=== PATIENT | female | born 1995 | race Asian ===

== ENCOUNTER → 2022-02-25 12:57 | Outpatient (CLI) | payer OTHER, SELFPAY ==
--- NOTE | 2022-02-25 13:01 | DI.US.S_ITS ---
PROCEDURE: US OB <= 14 WEEKS FETUS INDICATIONS: DATING OUTSIDE/PRIOR DATING DATA: Last menstrual period (LMP): 09/24/2021 LMP-based estimated date of delivery (TESSA): 07/01/2022 First dating scan (date and location): 02/25/2022 Estimated date of delivery (TESSA) from first dating scan: 09/12/2022 TECHNIQUE: Real-time scanning was performed of the fetus and maternal pelvic organs, with image documentation. Endovaginal scanning was also performed to better visualize the fetus and maternal ovaries. COMPARISON: None. FINDINGS: Embryo: Intrauterine gestational sac is seen with yolk sac and pole. Garvin-rump length is 4.8 cm, consistent with an estimated gestational age of 11 weeks 4 days. A heterogeneous perigestational sac hemorrhage inferior and to the left of the gestational sac measures 4.6 x 4.0 x 2.7 cm, covering less than 50 % of the circumference of the gestational sac. Heart rate: 189 beats per minute Maternal organs: A right corpus luteum cyst is seen. Left ovary appears normal. IMPRESSION: 1. Single live intrauterine with estimated gestational age of 11 weeks 4 days, giving an ultrasound TESSA of 09/12/2022. 2. Perigestational sac hemorrhage is seen measuring 4.6 x 4.0 x 2.7 cm. We strive to produce accurate, complete, and clear reports of imaging services. To assist us in improving patient care, this report was composed using standard report templates and voice recognition software. Therefore, it may contain abnormal punctuation, insertions and/or omissions. Occasional wrong-word or sound-alike substitutions may occur. Though we review the report and make efforts to correct it, we do recommend that the report be read carefully in proper context to recognize any text inaccuracies. Dictated by: Eric Medellin M.D. on 02/25/2022 at 19:27 Approved by: Eric Medellin M.D. on 02/25/2022 at 19:32
== END ==
PROVIDERS: PCP Physician Assistant; Referring Provider Family Medicine; Visit Provider Family Medicine
DX: O46.91 Antepartum hemorrhage, unspecified, first trimester (principal); Z3A.11 11 weeks gestation of pregnancy
CPT/HCPCS: 76801; 76817

== ENCOUNTER → 2022-05-05 06:37 | Outpatient (CLI) | payer OTHER, SELFPAY ==
--- NOTE | 2022-05-05 06:39 | DI.US.S_ITS ---
PROCEDURE: US OB >= 14 WEEKS FETUS INDICATIONS: Anatomy Scan OUTSIDE/PRIOR DATING DATA: Last menstrual period (LMP): 09/24/2021. LMP-based estimated date of delivery (TESSA): 07/01/2022. First dating scan (date and location): 02/25/2022; [facility]. Estimated date of delivery (TESSA) from first dating scan: 09/12/2022. The calculations are made using the working TESSA of 09/12/2022. TECHNIQUE: Real-time scanning was performed of the fetus, with image documentation and biometric measurements. COMPARISON: [facility], OB <= 14 WEEKS FETUS, 02/25/2022, 13:11. FINDINGS: General: A single living intrauterine gestation is present. Presentation: Vertex. Placenta: Placental position is anterior, without previa. Amniotic fluid index: 14.1 cm, normal range is 5-24 cm. Single deepest vertical pocket is 7.4 cm. heart rate: 163 beats per minute. Maternal cervical canal: 3 point cm long. Normal lower limit is 2.5 cm. biometrics: Biparietal diameter: 22 weeks 0 day Head circumference: 21 weeks 4 days Abdominal circumference: 22 weeks 0 day Femur length: 21 weeks 1 day Clinically estimated gestational age: 21 weeks 3 days Composite gestational age from present scan: 21 weeks 5 days Estimated weight and percentile: 435 g; 53% Anatomic survey: Neuro: Ventricles are non-dilated at less than 10 mm. Cisterna magna is normal at 3-11 mm. Cerebellum is normal in size and morphology. Nuchal skin fold: Normal at less than 6 mm between 14-21 weeks gestational age. Face: Nose and lips, facial profile are normal. Spine: No evidence for spina bifida. Heart: 4-chambered heart is present, with normal ventricular outflow tracts. Diaphragm: Diaphragm is intact. Stomach: Left-sided stomach is present. Kidneys: No hydronephrosis. Normal is less than 5 mm in 2nd trimester, less than 7 mm in 3rd trimester. Cord: 3-vessel cord has orthotopic insertion. Bladder: Normal in size. Extremities: All 4 extremities identified. IMPRESSION: 1. A single living intrauterine gestation with appropriate interval growth. 2. Normal anatomic survey. We strive to produce accurate, complete, and clear reports of imaging services. To assist us in improving patient care, this report was composed using standard report templates and voice recognition software. Therefore, it may contain abnormal punctuation, insertions and/or omissions. Occasional wrong-word or sound-alike substitutions may occur. Though we review the report and make efforts to correct it, we do recommend that the report be read carefully in proper context to recognize any text inaccuracies. Dictated by: Tip Bailey M.D. on 05/05/2022 at 10:43 Approved by: Tip Bailey M.D. on 05/05/2022 at 10:51
== END ==
PROVIDERS: PCP Physician Assistant; Referring Provider Family Medicine; Visit Provider Family Medicine
DX: Z36.89 Encounter for other specified antenatal screening (principal); O98.812 Other maternal infectious and parasitic diseases complicating pregnancy, second trimester; Z3A.21 21 weeks gestation of pregnancy
CPT/HCPCS: 76811; 81003; 81015; 87086; 87491; 87591

== ENCOUNTER → 2022-05-05 09:11 | Outpatient (CLI) | payer OTHER, SELFPAY ==
[2022-05-05 14:08] LABS: Appearance Urine UA CLEAR; Bilirubin Urine UA NEGATIVE (NEGATIVE); Color Urine UA YELLOW; Glucose Urine UA 1+ g/dL (Negative); Ketones Urine UA NEGATIVE (NEGATIVE); Leukocyte Esterase Urine UA TRACE (NEGATIVE); Nitrite Urine UA NEGATIVE (Negative); Occult Blood Urine UA TRACE-INTACT (Negative); Protein Urine UA NEGATIVE (Negative); Urobilinogen Urine UA 0.2 E.U./dL (0.2)
[2022-05-05 14:09] LABS: pH Urine UA 6.5 (4.5-8.0)
[2022-05-05 14:15] LABS: RBC Urine None Seen (0-5/HPF); Squamous Epithelial Cell Urine 1-5 /HPF (0-5/HPF); WBC Urine 1-5/HPF (0-5/HPF)
[2022-05-05 14:16] LABS: Amorphous Sediment Urine 1+; Bacteria Urine Many (>30)
[2022-05-05 14:17] LABS: Culture Indicated Urine Specimen Cultured
[2022-05-05 15:02] LABS: Urine N gonorrhoeae NOT DETECTED
[2022-05-05 15:03] LABS: Urine Chlamydia DETECTED
== END ==
PROVIDERS: PCP Physician Assistant; Visit Provider Family Medicine
DX: Z34.00 Encounter for supervision of normal first pregnancy, unspecified trimester (principal); A74.9 Chlamydial infection, unspecified; N92.6 Irregular menstruation, unspecified
CPT/HCPCS: 81003; 81015; 87086; 87491; 87591

== ENCOUNTER → 2022-06-09 13:34 | Outpatient (CLI) | payer OTHER, SELFPAY ==
[2022-06-09 15:09] LABS: Urine N gonorrhoeae NOT DETECTED
[2022-06-09 15:10] LABS: Urine Chlamydia NOT DETECTED
== END ==
PROVIDERS: PCP Physician Assistant; Visit Provider Family Medicine
DX: A74.9 Chlamydial infection, unspecified (principal)
CPT/HCPCS: 87491; 87591

== ENCOUNTER → 2022-06-26 12:48 | Outpatient (CLI) | payer OTHER, SELFPAY ==
[2022-06-26 14:59] LABS: Add Manual Diff / Slide Review NO; Basophils Absolute Auto 0 /uL (0-100); Basophils Percent Auto 0.5 % (0-2); Eosinophils Absolute Auto 0 /uL (0-450); Eosinophils Percent Auto 0.6 % (2-4); Hematocrit 32.7 % (36-46); Hemoglobin 11.2 g/dL (12.0-16.0); Lymphocytes Absolute Auto 1600 /uL (1100-4500); Lymphocytes Percent Auto 21.4 % (25-40); Mean Corpuscular HGB Conc 34.4 % (30-36); Mean Corpuscular Hemoglobin 29.3 PG (26-34); Mean Corpuscular Volume 85.2 fL (80-100); Monocytes Absolute Auto 400 /uL (0-900); Monocytes Percent Auto 5.8 % (3-14); Neutrophils Absolute Auto 5300 /uL (1500-7000); Neutrophils Percent Auto 71.7 % (50-75); Platelet Count 236 X10^3/uL (150-400); Red Blood Cell Count 3.83 X10^6/uL (4.0-5.2); Red Cell Distribution Width 17.4 % (11.6-14.8); White Blood Cell Count 7.3 X10^3/uL (4.5-11.0)
[2022-06-26 16:31] LABS: GTT (PREG) 1 Hour PP 50gm Dose 144 mg/dL (76-139)
[2022-06-27 08:39] LABS: RPR Screen Non Reactive (Non Reactive)
[2022-06-27 21:01] LABS: HIV 1 & 2 Ab/Ag 4th Gen Combo NEGATIVE (NEGATIVE); Hep C Virus Ab w/Reflex Quant NEGATIVE s/c (NEGATIVE); Hepatitis B Surface Antigen NEGATIVE s/c (NEGATIVE)
[2022-06-28 15:36] LABS: Varicella IgG Antibody 372 index (Immune >165)
== END ==
PROVIDERS: PCP Family Medicine; Referring Provider Family Medicine; Visit Provider Family Medicine
DX: Z34.00 Encounter for supervision of normal first pregnancy, unspecified trimester (principal); N92.6 Irregular menstruation, unspecified; Z13.1 Encounter for screening for diabetes mellitus
CPT/HCPCS: 80055; 82950; 86787; 86803; 86850; 86900; 86901; 87389

== ENCOUNTER → 2022-07-06 07:59 | Outpatient (CLI) | payer OTHER, SELFPAY ==
[2022-07-06 09:22] LABS: Glucose Fasting Gestational 84 mg/dL (76-95)
[2022-07-06 10:27] LABS: Glucose 1 Hour Gest 160 mg/dL (76-180)
[2022-07-06 11:14] LABS: Glucose 2 Hour Gest 148 mg/dL (76-155)
[2022-07-06 11:21] LABS: Glucose Tol Interp,Gestational INTERPRETATION
[2022-07-06 11:51] LABS: Glucose 3 Hour Gest 119 mg/dL (76-140)
== END ==
PROVIDERS: PCP Family Medicine; Referring Provider Family Medicine; Visit Provider Family Medicine
DX: R73.09 Other abnormal glucose (principal)
CPT/HCPCS: 36415; 82951; 82952

== ENCOUNTER 2022-08-11 21:20 | Inpatient (IN) | payer OTHER, SELFPAY ==
[2022-08-11] MEDS: AMPICILLIN 2,000 MG in SODIUM CHLORIDE 0.9% 100 ML 200 MG IV (22:56)
[2022-08-11] MEDS: BETAMETHASONE 30 MG/5 ML MDV 12 MG IM (22:59)
[2022-08-11] MEDS: LACTATED RINGERS 1,000 ML 100 ML IV (23:00)
[2022-08-11 23:12] VITALS: BP 134/91
[2022-08-11 23:17] LABS: Add Manual Diff / Slide Review NO; Basophils Absolute Auto 0 /uL (0-100); Basophils Percent Auto 0.4 % (0-2); Eosinophils Absolute Auto 100 /uL (0-450); Eosinophils Percent Auto 0.6 % (2-4); Hematocrit 35.4 % (36-46); Hemoglobin 12.3 g/dL (12.0-16.0); Lymphocytes Absolute Auto 2100 /uL (1100-4500); Lymphocytes Percent Auto 22.8 % (25-40); Mean Corpuscular HGB Conc 34.8 % (30-36); Mean Corpuscular Hemoglobin 29.5 PG (26-34); Mean Corpuscular Volume 84.6 fL (80-100); Monocytes Absolute Auto 700 /uL (0-900); Neutrophils Absolute Auto 6200 /uL (1500-7000); Neutrophils Percent Auto 68.2 % (50-75); Platelet Count 229 X10^3/uL (150-400); Red Blood Cell Count 4.18 X10^6/uL (4.0-5.2); Red Cell Distribution Width 18.2 % (11.6-14.8); White Blood Cell Count 9.1 X10^3/uL (4.5-11.0)
[2022-08-11 23:33] LABS: Blood Urea Nitrogen 6 mg/dL (7-17); Calcium 8.7 mg/dL (8.4-10.2); Carbon Dioxide 21 mmol/L (22-32); Chloride 106 mmol/L (98-107); Estimated Glomerular Filt Rate > 60 mL/min (>60); Glucose 103 mg/dL (70-100); HEMOLYSIS < 15 (0-50); Sodium 137 mmol/L (137-145)
[2022-08-11 23:39] LABS: Potassium 2.7 mmol/L (3.4-5.1)
[2022-08-12 00:12] LABS: Alanine Aminotransferase 19 IU/L (<35); Albumin 3.9 g/dL (3.5-5.0); Albumin Globulin Ratio 1.1 (1.0-2.8); Alkaline Phosphatase 104 U/L (38-126); Aspartate Aminotransferase 23 IU/L (14-36); Bilirubin Total 0.4 mg/dL (0.2-1.3); Bilirubin Unconjugated 0.2 mg/dL (0.0-1.1); Globulin 3.5 g/dL (1.7-4.1); HEMOLYSIS < 15 (0-50); Total Protein 7.4 g/dL (6.3-8.2)
[2022-08-12 00:22] LABS: Strep Grp B PCR POS for Grp B Strep
[2022-08-12 00:35] LABS: Creatinine Urine Random 46.5 mg/dL; Protein (Total) Urine Random 27 mg/dL (0-12); Protein Creatinine Ratio Urine 0.58 GRAM/24H
[2022-08-12] MEDS: fentaNYL 100 MCG/2 ML INJ 50 MCG IV (01:32)
[2022-08-12] MEDS: AMPICILLIN 1,000 MG in SODIUM CHLORIDE 0.9% 100 ML 200 MG IV (02:47)
--- NOTE | 2022-08-12 03:43 | P.HPOB_ITS ---
OB HPI Date/Time Date of admission: 08/11/22 Date Patient Seen: 08/12/22 Time Patient Seen: 03:43 History of Present Condition Chief complaint: observation of labor TESSA Calculator Estimated Delivery Date Method Current WG Current Estimate 09/12/22 Manual 35w 4d Final TESSA Other Estimates 07/01/22 LMP (Certain) 46w 0d 09/12/22 Ultrasound #1 35w 4d Estimated Gestational Age (weeks): 35w4d : 1 Para: 0 Narrative: 27yo at 35w4d here with leaking fluid. Pt reports feeling a large gush of fluid around 8:55pm last night. She has continued to leak since then. No vaginal bleeding or contractions. She continues to feel her baby move regularly. Since admission to the hospital, she started to feel regular, painful contractions. The pts was complicated by positive Chlamydia testing in the 2nd trimester, with negative BRAYAN. care: good care, initiated at week # (12) and pounds weight gain (12) Dating criteria OB: based on 1st trimester US only Ultrasounds: normal 1st trimester US and normal mid trimester US Obstetrical complications: none Medical complications OB: none Preadmission Labs Last OB Lab Results: Blood Type O Positive 08/11/22 22:45 Antibody Screen Negative 08/11/22 22:45 Hematocrit 35.4 % (36-46) L 08/11/22 22:45 Hemoglobin 12.3 g/dL (12.0-16.0) 08/11/22 22:45 Hepatitis B Surface Antigen Negative s/c (NEGATIVE) 06/26/22 14 :16 Hepatitis C Antibody Negative s/c (NEGATIVE) 06/26/22 14:16 Rubella Antibody 141.0 IU/mL (>15) 06/26/22 14:16 Varicella-Zoster IgG Antibody 372 index (Immune >165) 06/26/22 14:16 Glucose 1 Hour 144 mg/dL (76-139) H 06/26/22 14:16 Group B Streptococcus (PCR) Pos for grp b strep H 08/11/22 22:5 0 -: Chlamydia screen: positive, Gonorrhea screen: negative and Urine: negative External Labs -: Urine: negative Evaluation Evaluation Baseline heart rate: 120 Variability: Moderate (11-25) monitor accelerations: Present Monitor Decelerations: Absent Contraction Frequency (minutes): 3 Uterine Contraction Intensity: Strong/Firm Status: Category l Dilation (cm): 10 Effacement (%): 100 station: -1 [facility] Medical History Healthy adult Irregular menses Surgical History No pertinent past surgical history Family History Grandmother Hypertension Mother Diabetes mellitus Brother ALL (acute lymphoblastic leukemia) Father Family estrangement Social History marital status: household members: spouse and friend(s) lives independently: Yes housing: house pets and animals: No education level: college (Can's degree) occupational status: previously employed current occupational exposures/hazards: No special rupert needs: No travel history: recent (domestic only) seatbelt use: always water heater temp set < 120 deg: Yes working smoke detector in home: Yes fire extinguisher in home: Yes carbon monox detector in home: Yes firearms in home: No do you feel safe at home: Yes Smoking Status: Never smoker second hand exposure: Yes (Hub[place] and roommates smoke outside, not in car) alcohol intake: former (~2 glasses wine/month prior topregnancy) substance use type: does not use during the past year weight has: other (fluctuated (lost 20lb, gained it back)) well-balanced diet: rarely or never daily servings fruits/ve-1 caffeine: No Type(s) of exercise: none Meds Home Medications and Allergies Home Medications Medication Instructions Recorded Confirmed Type prenat.vits,catarina,[id number] 1 tab PO DAILY 02/16/22 08/11/22 History Allergies Allergy/AdvReac Type Severity Reaction Status Date / Time No Known Allergies Allergy Verified 08/11/22 21:54 OB Exam Narrative Exam Narrative: Gen: NAD, sitting comfortably in bed, appears well CV: RRR, no murmurs Resp: clear to auscultation bilaterally Abd: soft, nontender, gravid Ext: no edema Objective Labs 08/11/22 22:45 08/11/22 22:45 Labs: Laboratory Results - last 24 hr 08/11/22 08/11/22 08/11/22 22:37 22:45 22:45 WBC 9.1 RBC 4.18 Hgb 12.3 Hct 35.4 L MCV 84.6 MCH 29.5 MCHC 34.8 RDW 18.2 H Plt Count 229 Neut % (Auto) 68.2 Lymph % (Auto) 22.[address] [place] % (Auto) 8.0 Eos % (Auto) 0.6 L Baso % (Auto) 0.4 Neut # (Auto) 6200 Lymph # (Auto) 2100 [facility] # (Auto) 700 Eos # (Auto) 100 Baso # (Auto) 0 Sodium 137 Potassium 2.7 L* Chloride 106 Carbon Dioxide 21 L BUN 6 L Creatinine 0.46 L Estimated GFR > 60 BUN/Creatinine Ratio 13.0 Glucose 103 H Calcium 8.7 Total Bilirubin Conjugated Bilirubin Unconjugated Bilirubin AST ALT Alkaline Phosphatase Total Protein Albumin Globulin Albumin/Globulin Ratio U Random Total Protein 27 H Urine Creatinine 46.5 Protein/Creatinin Ratio 0.58 Group B Strep (PCR) Blood Type Antibody Screen 08/11/22 08/11/22 08/11/22 22:45 22:45 22:50 WBC RBC Hgb Hct MCV MCH MCHC RDW Plt Count Neut % (Auto) Lymph % (Auto) [facility] % (Auto) Eos % (Auto) Baso % (Auto) Neut # (Auto) Lymph # (Auto) [facility] # (Auto) Eos # (Auto) Baso # (Auto) Sodium Potassium Chloride Carbon Dioxide BUN Creatinine Estimated GFR BUN/Creatinine Ratio Glucose Calcium Total Bilirubin 0.4 Conjugated Bilirubin 0.0 Unconjugated Bilirubin 0.2 AST 23 ALT 19 Alkaline Phosphatase 104 Total Protein 7.4 Albumin 3.9 Globulin 3.5 Albumin/Globulin Ratio 1.1 U Random Total Protein Urine Creatinine Protein/Creatinin Ratio Group B Strep (PCR) Pos for grp b strep H Blood Type O Positive Antibody Screen Negative Assessment and Plan Assessment and Plan Assessment and Plan narrative: 27yo at 35w4d here with PPROM initially, now in active labor and fully dilated. GBS prophylaxis started at admission due to prematurity and unknown GBS status, now shown to be GBS positive. Has received adequate GBS prophylaxis. Received one dose of Betamethasone at admission as well for luis aturity. Pt did test positive for chlamydia earlier in with negative BRAYAN. Rh positive. - Expectant management, anticipate - Start pushing now. Pt desires natural methods for pain control and is coping well thus far. - FHT reassuring - Continue GBS prophylaxis with Ampicillin - Ensure infant receives Erythromycin eye ointment after delivery
[2022-08-12] MEDS: LIDOCAINE 1% 20 ML ×2 (04:22→05:05)
--- NOTE | 2022-08-12 04:51 | PM.OBPRVD ---
Events: Labor < 37 wks Labor & Delivery Delivery date: 08/12/22 Intrapartal Events: None Cervical ripening method: none Induction method: none Delivery monitor: external FHT and external uterine Route of delivery: L&D Laceration Description: Perineal - 2nd Degree Delivery repair: vicryl Quantitative Blood Loss: 1,345 Anesthesia Type: None Complications: hemorrhage Narrative: PROCEDURE: at 35w4d presented with PPROM and was admitted to Labor and Delivery. She converted into active labor spontaneously. The patient progressed through the 1st stage over 6.5 hours. Pain was controlled with natural methods. She received adequate GBS prophylaxis with Ampicillin. The patient progressed through the 2nd stage over 51 minutes and delivered a viable male with APGARs 8/9 at 4:10 via without complications. Nuchal cord x1 was reduced at the perineum. The cord was cut and clamped after it stopped pulsating. The placenta delivered with gentle cord traction, and appeared complete. The perineum and vagina were inspected with 2nd degree laceration repaired with 2-O Chromic in the usual fashion. The pt continued to have significant bleeding, and fundus was initially difficult to find on exam. It was then palpated, and found to be firm with fundal massage. The pt was cleaned, and then noted to have return of brisk bleeding. Her bladder was distended, and when attempting catheter for drainage bleeding began from the periurethral area. Periurethral laceration was then noted, and repaired with 3-O Chromic. The pts bleeding was then appropriate. Needle and sponge counts were correct.? The vagina was inspected and no items were left in situ. Nivia was doing well with Lorne Wakefield, her and her at bedside. PREPROCEDURE DIAGNOSIS: Intrauterine at 35w4d PPROM Pre-eclampsia without severe features GBS positive RH positive POSTPROCEDURE DIAGNOSIS: Intrauterine at 35w4d, delivered Same as preprocedure hemorrhage Baby 1: gender: Male Presentation: vertex Position: Left Occiput Anterior Placenta delivery description: Spontaneous Cord Vessel Description: 3 Vessels and Nuchal Cord score (1 min): 8 score (5 min): 9 weight: 5 lb 14.711 oz Plan for aftercare: Routine care
[2022-08-12] MEDS: LACTATED RINGERS 1,000 ML 100 ML IV (05:45)
[2022-08-12] MEDS: DERMOPLAST SPRAY 20% 60 ML 1 SPRAY TOP (06:26)
[2022-08-12] MEDS: IBUPROFEN 600 MG TABLET PO ×3 (06:27→21:24)
[2022-08-12] MEDS: ACETAMINOPHEN 325 MG TABLET 650 MG PO ×3 (06:27→21:24)
[2022-08-12] MEDS: miSOPROStoL 200 MCG TABLET 1000 MCG PR (07:32)
[2022-08-12 09:06] LABS: Add Manual Diff / Slide Review NO; Basophils Absolute Auto 0 /uL (0-100); Basophils Percent Auto 0.1 % (0-2); Eosinophils Absolute Auto 0 /uL (0-450); Hematocrit 27.3 % (36-46); Hemoglobin 9.5 g/dL (12.0-16.0); Lymphocytes Absolute Auto 1500 /uL (1100-4500); Lymphocytes Percent Auto 8.4 % (25-40); Mean Corpuscular HGB Conc 34.8 % (30-36); Mean Corpuscular Hemoglobin 29.5 PG (26-34); Mean Corpuscular Volume 84.9 fL (80-100); Monocytes Absolute Auto 300 /uL (0-900); Neutrophils Absolute Auto 15900 /uL (1500-7000); Neutrophils Percent Auto 89.5 % (50-75); Platelet Count 196 X10^3/uL (150-400); Red Blood Cell Count 3.21 X10^6/uL (4.0-5.2); Red Cell Distribution Width 17.7 % (11.6-14.8); White Blood Cell Count 17.7 X10^3/uL (4.5-11.0)
[2022-08-12] MEDS: LANOLIN OINT 7 GM 1 APPLIC TOP (10:01)
[2022-08-12] MEDS: FERROUS SULFATE 325 MG TABLET PO (10:03)
[2022-08-12] MEDS: DOCUSATE 100 MG CAPSULE PO (10:04)
[2022-08-12] MEDS: PRENATAL VIT,CALC/IRON/FOLIC 1 TABLET 1 TAB PO (10:04)
[2022-08-12] MEDS: POTASSIUM CHLORIDE 20 MEQ TAB 40 MEQ PO ×2 (13:55→20:05)
[2022-08-12 14:11] VITALS: BP 113/77; PULSE 87; RESP 16; TEMP 36.3
[2022-08-13] MEDS: ACETAMINOPHEN 325 MG TABLET 650 MG PO ×4 (03:30→21:05)
[2022-08-13] MEDS: IBUPROFEN 600 MG TABLET PO ×4 (03:31→21:05)
--- NOTE | 2022-08-13 04:18 | PC.NURSE ---
Late note entry Patient received two 500ml bags of Pitocin (30 units each) mixed with NS. Stickers with barcode for Pitocin would not scan and manually entering the medication did not work either.
[2022-08-13 06:37] LABS: Add Manual Diff / Slide Review NO; Basophils Absolute Auto 0 /uL (0-100); Basophils Percent Auto 0.2 % (0-2); Eosinophils Absolute Auto 0 /uL (0-450); Hematocrit 22.8 % (36-46); Hemoglobin 7.9 g/dL (12.0-16.0); Lymphocytes Absolute Auto 2600 /uL (1100-4500); Mean Corpuscular HGB Conc 34.8 % (30-36); Mean Corpuscular Hemoglobin 29.6 PG (26-34); Mean Corpuscular Volume 85.1 fL (80-100); Monocytes Absolute Auto 1000 /uL (0-900); Monocytes Percent Auto 6.3 % (3-14); Neutrophils Absolute Auto 11800 /uL (1500-7000); Neutrophils Percent Auto 76.5 % (50-75); Platelet Count 187 X10^3/uL (150-400); Red Blood Cell Count 2.67 X10^6/uL (4.0-5.2); White Blood Cell Count 15.5 X10^3/uL (4.5-11.0)
[2022-08-13 06:42] LABS: Alanine Aminotransferase 19 IU/L (<35); Albumin 3.2 g/dL (3.5-5.0); Albumin Globulin Ratio 1.1 (1.0-2.8); Alkaline Phosphatase 70 U/L (38-126); Aspartate Aminotransferase 25 IU/L (14-36); BUN Creatinine Ratio 15.1 (6-22); Bilirubin Total 0.3 mg/dL (0.2-1.3); Blood Urea Nitrogen 8 mg/dL (7-17); Carbon Dioxide 21 mmol/L (22-32); Chloride 106 mmol/L (98-107); Estimated Glomerular Filt Rate > 60 mL/min (>60); Globulin 2.8 g/dL (1.7-4.1); Glucose 92 mg/dL (70-100); HEMOLYSIS < 15 (0-50); Potassium 3.2 mmol/L (3.4-5.1); Sodium 137 mmol/L (137-145)
[2022-08-13] MEDS: FERROUS SULFATE 325 MG TABLET PO (09:11)
[2022-08-13] MEDS: DOCUSATE 100 MG CAPSULE PO (09:11)
[2022-08-13] MEDS: PRENATAL VIT,CALC/IRON/FOLIC 1 TABLET 1 TAB PO (09:11)
[2022-08-13] MEDS: POTASSIUM CHLORIDE 20 MEQ TAB 40 MEQ PO ×2 (10:10→15:14)
--- NOTE | 2022-08-13 21:25 | P.PNOB_ITS ---
Subjective - OB Subjective Patient comments: no complaints and pain well controlled Narrative: Patient reports that she is doing well. Her lochia is decreasing appropriately. She has voided successfully. She is pumping to try and produce colostrum, but still has not been able to show any yet. Exam Narrative Exam Narrative: Gen: NAD, sitting comfortably in bed, appears well CV: RRR, no murmurs Resp: clear to auscultation bilaterally Abd: soft, appropriately tender, fundus firm and below the umbilicus, nondistended Ext: no edema Objective Labs 08/13/22 06:15 08/13/22 06:15 Labs: Laboratory Results - last 24 hr 08/13/22 08/13/22 06:15 06:15 WBC 15.5 H RBC 2.67 L Hgb 7.9 L Hct 22.8 L MCV 85.1 MCH 29.6 MCHC 34.8 RDW 18.0 H Plt Count 187 Neut % (Auto) 76.5 H Lymph % (Auto) 17.0 L [place] % (Auto) 6.3 Eos % (Auto) 0.0 L Baso % (Auto) 0.2 Neut # (Auto) 75879 H Lymph # (Auto) 2600 [place] # (Auto) 1000 H Eos # (Auto) 0 Baso # (Auto) 0 Sodium 137 Potassium 3.2 L Chloride 106 Carbon Dioxide 21 L BUN 8 Creatinine 0.53 Estimated GFR > 60 BUN/Creatinine Ratio 15.1 Glucose 92 Calcium 8.0 L Total Bilirubin 0.3 AST 25 ALT 19 Alkaline Phosphatase 70 Total Protein 6.0 L Albumin 3.2 L Globulin 2.8 Albumin/Globulin Ratio 1.1 Assessment & Plan Plan Comments: Pt is a 27yo PPD#1 s/p with hemorrhage. Pre-eclampsia diagnosed prior to delivery, however BP has been normal range since delivery. Pt doing well. - Normal care - support with consulted. Formula supplementing, but mother pumping with every feed to promote colostrum production. - Iron supplement Time Spent With Patient Time: Total time spent is greater than 50% in coordination of care (as documented) at patient's floor/unit and/or counseling patient: Time with patient: 15-24 minutes
[2022-08-14] MEDS: IBUPROFEN 600 MG TABLET PO ×2 (02:58→09:06)
[2022-08-14] MEDS: ACETAMINOPHEN 325 MG TABLET 650 MG PO ×2 (02:58→09:06)
[2022-08-14] MEDS: FERROUS SULFATE 325 MG TABLET PO (09:05)
[2022-08-14] MEDS: DOCUSATE 100 MG CAPSULE PO (09:06)
[2022-08-14] MEDS: PRENATAL VIT,CALC/IRON/FOLIC 1 TABLET 1 TAB PO (09:06)
--- NOTE | 2022-08-14 15:01 | P.DS_ITS ---
Discharge Providers Provider Date of admission: 08/11/22 21:20 Discharge Date: 08/14/22 Primary care physician: Yasmin Raymond MD Consults: 08/11/22 21:56 Consult to Anesthesiology Routine Comment: Consulting Provider: Tyrell Lowry Reason for consultation: Epidural 08/13/22 04:55 Consult to Body Shop Mechanic Routine Comment: Discharge provider: Yasmin Raymond MD Summary Hospital Course Date Patient Seen: 08/14/22 Diagnoses: 35w4d gestation GBS positive Rh positive Pre-eclampsia without severe features hemorrhage Acute blood loss anemia Hospital Course: The pt presented with PPROM. She was diagnosed with pre-eclampsia at admission, however her BPs remained in normal range after delivery and she never required MgSO4. She progressed into active labor spontaneously. She had an of a viable baby boy without complications. She had received adequate GBS prophylaxis. 2nd degree perineal and periurethral lacerations were repaired. The pt did have significant bleeding due to difficulty finding her fundus initially, and then from the periurethral laceration. She was started on an iron supplement after delivery for anemia. , there were no additional complications. At the time of discharge she was voiding, ambulating, and passing flatus without difficulty. Her lochia was decreasing appropriately. She was with good latch, but supplementing as well due to minimal colostrum production. Her pain was well controlled. She will f/u in 6 weeks for check. Peripartum Data Infant Delivery Method: Natural Vaginal Laceration Description: Periurethral - 1st Degree and Perineal - 2nd Degree Episiotomy description: None Procedures: Spontaneous vaginal delivery complications: other ( hemorrhage) 1: Gender: Male Disposition of : home Discharge Diagnosis (1) Preeclampsia: Status: Acute (2) hemorrhage: Status: Acute (3) Acute blood loss anemia: Status: Acute (4) 35 weeks gestation of : Status: Acute Status at Discharge Cognitive/behavioral status at discharge: oriented Functional status at discharge: independent ambulation Overall status at discharge: patient is progressing back to baseline Time Spent with Patient Time attestation: Total time spent providing and/or coordinating discharge services: Objective Labs 08/13/22 06:15 08/13/22 06:15 Exam Narrative Exam Narrative: Gen: NAD, sitting comfortably in bed, appears well CV: RRR, no murmurs Resp: clear to auscultation bilaterally Abd: soft, appropriately tender, fundus firm and below the umbilicus, nondistended Ext: no edema Discharge Plan Discharge Plan Patient Disposition: Home Discharge orders & Medications Prescriptions: New acetaminophen 325 mg Tablet 650 mg PO Q6HR PRN (Reason: Pain, Mild (1-3)) Qty: 30 0RF ferrous sulfate 325 mg (65 mg iron) Tablet 325 mg PO DAILY Qty: 30 0RF docusate sodium 100 mg Capsule 100 mg PO DAILY Qty: 30 0RF ibuprofen 600 mg Tablet 600 mg PO Q6HR PRN (Reason: Pain, Mild (1-3)) Qty: 30 0RF Continued prenat.vits,catarina,[id number] Tablet 1 tab PO DAILY Follow up/Referrals: Yasmin Raymond MD [Primary Care Provider] - 6 Weeks (Please follow up with Dr. Raymond on Wednesday, September 23 @ 0900AM for your post- check-up. Please call the clinic with any questions. ) Diet/Activity/Treatments Diet: Diet as Tolerated and Regular Skin/Wound/Dressing Care Report to your healthcare provider any signs of infection, such as:: chills, fever and increased pain Visit Report/Discharge Packet Instructions: DI for Labor and Delivery, Vaginal Stand Alone Forms: Discharge: Care, Patient Portal/API, Stroke Signs & Symptoms Discharge Data Primary Care Provider: Yasmin Raymond Discharges patient from system. Discharge Date/Time: 08/14/22 15:20
== END 2022-08-14 15:20 | disposition home or self-care (01) | DRG 805 ==
PROVIDERS: Admitting Provider Family Medicine; PCP Family Medicine; Referring Provider Family Medicine; Visit Provider Family Medicine
DX: O42.02 Full-term premature rupture of membranes, onset of labor within 24 hours of rupture (principal); O60.14X0 Preterm labor third trimester with preterm delivery third trimester, not applicable or unspecified; Z37.0 Single live birth; D62 Acute posthemorrhagic anemia; O14.04 Mild to moderate pre-eclampsia, complicating childbirth; Z3A.35 35 weeks gestation of pregnancy; O99.824 Streptococcus B carrier state complicating childbirth; O70.1 Second degree perineal laceration during delivery; O69.81X0 Labor and delivery complicated by cord around neck, without compression, not applicable or unspecified; O90.81 Anemia of the puerperium; Z67.40 Type O blood, Rh positive
CPT/HCPCS: 36415; 59025; 59050; 59400; 80048; 80053; 80076; 82570; 84112; 84156; 85025; 86850; 86900; 86901; 87653; G0379; J0290; J0702; J3010; S0191

== ENCOUNTER → 2022-11-17 17:13 | Outpatient (CLI) | payer OTHER, SELFPAY ==
[2022-11-17 17:43] LABS: Alanine Aminotransferase 16 IU/L (<35); Albumin 4.8 g/dL (3.5-5.0); Albumin Globulin Ratio 1.3 (1.0-2.8); Alkaline Phosphatase 73 U/L (38-126); Aspartate Aminotransferase 24 IU/L (14-36); BUN Creatinine Ratio 14.3 (6-22); Bilirubin Total 0.3 mg/dL (0.2-1.3); Blood Urea Nitrogen 14 mg/dL (7-17); Calcium 8.9 mg/dL (8.4-10.2); Carbon Dioxide 24 mmol/L (22-32); Chloride 104 mmol/L (98-107); Estimated Glomerular Filt Rate > 60 mL/min (>60); Globulin 3.7 g/dL (1.7-4.1); Glucose 94 mg/dL (70-100); HEMOLYSIS 17 (0-50); Sodium 137 mmol/L (137-145); Total Protein 8.5 g/dL (6.3-8.2)
[2022-11-17 17:48] LABS: HEMOLYSIS < 15 (0-50); Iron 51 ug/dL (37-170)
[2022-11-17 17:58] LABS: Add Manual Diff / Slide Review NO; Basophils Absolute Auto 100 /uL (0-100); Basophils Percent Auto 0.7 % (0-2); Eosinophils Absolute Auto 100 /uL (0-450); Eosinophils Percent Auto 0.9 % (2-4); Hematocrit 34.6 % (36-46); Lymphocytes Absolute Auto 2800 /uL (1100-4500); Lymphocytes Percent Auto 28.8 % (25-40); Mean Corpuscular HGB Conc 34.8 % (30-36); Mean Corpuscular Hemoglobin 25.6 PG (26-34); Mean Corpuscular Volume 73.7 fL (80-100); Monocytes Absolute Auto 800 /uL (0-900); Monocytes Percent Auto 7.9 % (3-14); Neutrophils Absolute Auto 6100 /uL (1500-7000); Neutrophils Percent Auto 61.7 % (50-75); Platelet Count 310 X10^3/uL (150-400); Red Cell Distribution Width 19.6 % (11.6-14.8); White Blood Cell Count 9.8 X10^3/uL (4.5-11.0)
[2022-11-17 17:59] LABS: Percent Iron Saturation 10 % (15-50); Total Iron Binding Capacity 505 ug/dL (265-497); Transferrin 369 mg/dL (206-381)
[2022-11-17 18:18] LABS: Ferritin 8 ng/mL (6-137)
[2022-11-17 18:20] LABS: TSH w/ Reflex to FT4 0.74 uIU/mL (0.47-4.68)
[2022-11-17 18:34] LABS: Vitamin B12 416 pg/mL (239-931)
== END ==
PROVIDERS: PCP Family Medicine; Referring Provider Physician Assistant; Visit Provider Physician Assistant
DX: D64.9 Anemia, unspecified (principal); R53.83 Other fatigue
CPT/HCPCS: 36415; 80053; 82607; 82728; 83540; 83550; 84443; 85025